=== PATIENT | male | born 1990 | race Caucasian/White ===

== ENCOUNTER 2017-03-20 02:45 | Emergency (ER) | payer OTHER ==
[~2017-03-20] VITALS: Ht 185.4 cm; Wt 117.9 kg
[2017-03-20 02:48] VITALS: BP_SYST 166
--- NOTE | 2017-03-20 02:48 | NUR ---
Placed in room H1 . In chair in handcuff, [employer] officers at bedside. Report given to HOUSTON Avendano.
--- NOTE | 2017-03-20 02:57 | NUR ---
Written and verbal consent obtained from patient for blood alcohol, name and verified by patient. Disinfected patient's skin with Povidone-Iodine that did not contain alcohol or other volatile organic compound. Collected the blood from the subject named by venipuncture, in the presence of Officer Heraclio Cota Number [id number]. Used a sterile, dry hypodermic needle and dry vacuum blood collection. The dry vacuum blood collection was supplied by the officer named above. Withdrew a specimen of blood from right AC of the subject named above. Inverted the blood tube several times to ensure that the preservative and anticoagulant were thoroughly mixed in the blood specimen. I initialed the blood tube label for identification. The labeled blood tube was handed directly to the Officer named above. The blood tube stopper remained in place while I had possession of the blood tube. The Officer placed tube into envelope and sealed it in my presence. Envelope initialed by myself and Officer named above. Patient tolerated well, bandage applied, and bleeding controlled.
--- NOTE | 2017-03-20 03:03 | NUR ---
Patient was discharged in custody of [facility] Officer Cipriano Pulliam Number [id number]. Patient left ER in handcuffs in no acute distress. Patient able to ambulate out of ER with slow, steady gait. Patient remains without complaint. Dreesing to right AC remains clean, dry and intact.
== END 2017-03-20 02:57 ==
LOC: SED 02:45
DX: Z02.89 Encounter for other administrative examinations (principal)